=== PATIENT | male | born 1995 ===

== ENCOUNTER 2023-04-04 08:51 | Emergency (ER) | payer SELFPAY ==
[2023-04-04 09:00] VITALS: BP 149/94; PULSE 64; RESP 16; TEMP 36.6; O2SAT 100; BMI 38.0
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
[2023-04-04] MEDS: Ketorolac Tromethamine 15 MG/ML VIAL IM (09:12)
[2023-04-04] MEDS: Cyclobenzaprine HCl 5 MG TABLET PO (09:13)
== END 2023-04-04 09:17 | disposition home or self-care (01) ==
PROVIDERS: Emergency Provider Emergency Medicine Emergency Medical Services
DX: S39.92XA Unspecified injury of lower back, initial encounter (principal); S49.92XA Unspecified injury of left shoulder and upper arm, initial encounter; M25.512 Pain in left shoulder; V43.52XA Car driver injured in collision with other type car in traffic accident, initial encounter; Y93.9 Activity, unspecified; Y92.410 Unspecified street and highway as the place of occurrence of the external cause; Y99.9 Unspecified external cause status
CPT/HCPCS: 96372; 99284; J1885